=== PATIENT | male | born 1965 | race Native Hawaiian/Other Pacific Islander ===

== ENCOUNTER 2019-01-26 16:40 | Observation (INO) | payer OTHER ==
[~2019-01-26] VITALS: Ht 182.9 cm; Wt 87.3 kg
[2019-01-26 16:47] VITALS: BP 142/71; TEMP 97.9
[2019-01-26 17:24] LABS: PLATELET COUNT 345 K/uL (142-355)
[2019-01-26 17:41] LABS: POTASSIUM 4.2 mmol/L (3.6-5.2); SODIUM 137 mmol/L (136-145)
[2019-01-26 20:12] VITALS: BP 111/66; TEMP 98.3; Ht 182.9 cm; Wt 87.3 kg
[2019-01-26] MEDS ORDERED: TRAZ100T PO (21:01)
[2019-01-26] MEDS ORDERED: RANO1000T PO (21:05)
[2019-01-26] MEDS ORDERED: METF500T PO (21:07)
[2019-01-26] MEDS ORDERED: FERROUS SULF325 M1 PO (21:07)
[2019-01-26] MEDS ORDERED: LIPITOR80 MG PO (21:08)
[2019-01-26] MEDS ORDERED: HYDRALAZINE50 MG PO (21:11)
[2019-01-27] VITALS: BP 103/59; TEMP 97.4
[2019-01-27 04:00] VITALS: BP 103/57; TEMP 97.5
[2019-01-27 08:00] VITALS: BP 107/59
== END 2019-01-27 09:00 | disposition left against medical advice (07) ==
LOC: ED 16:40 → MED/SURG 18:30 → ED 18:50 → MED/SURG 18:50
PROVIDERS: Emergency Medicine; ADMIT Family Medicine
DX: R07.89 Other chest pain (principal); I25.10 Atherosclerotic heart disease of native coronary artery without angina pectoris; I10 Essential (primary) hypertension; E11.9 Type 2 diabetes mellitus without complications; F17.200 Nicotine dependence, unspecified, uncomplicated
CPT/HCPCS: 36415; 80053; 82550; 82948; 84484; 85027; 85610; 85730; 93005; 96365; 96374; 96375; 99220; 99283; G0378; J1885; J2270; J2550